=== PATIENT | female | born 2000 | race Caucasian/White ===

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

== ENCOUNTER 2022-08-03 11:14 | Emergency (ER) | payer OTHER ==
[2022-08-03] MEDS ORDERED: cefTRIAXone (ROCEPHIN) 500 MG VIAL ONE (12:05)
[2022-08-03] MEDS ORDERED: Lidocaine 1% PF 5 ML VIAL ONE (12:06)
[2022-08-03 12:38] LABS: Bilirubin Neg (Negative); Blood, Urine 250 (Negative); Clarity Slightly Cloudy (Clear); Glucose, Urine (Dipstick) Normal (Negative); Ketone, Urine Negative (Negative); Leukocyte 500 (Negative); Nitrite Negative (Negative); Protein, Urine (Dipstick) 30 mg/dl (Neg-Trace)
[2022-08-03 12:40] LABS: #Basophils 0.1 10x3/uL (0.0-0.2); #Eosinphils 0.7 10x3/uL (0.0-0.5); #Monocytes 0.6 10x3/uL (0.0-1.1); #Neutrophils 4.5 10x3/uL (1.5-8.4); %Basophils 0.8 % (0.0-2.0); %Eosinophils 8.6 % (0.0-6.0); %Lymphocytes 25.3 % (18.0-47.0); %Monocytes 7.7 % (0.0-10.0); %Neutrophils 57.2 % (40.0-75.0); Hemoglobin 12.2 g/dL (12.0-15.5); Mean Corpuscular HGB CONC 31.9 g/dL (32.0-36.0); Mean Corpuscular Hemoglobin 26.8 pg (27.0-33.0); Mean Platelet Volume 9.9 fl (7.4-10.4); Platelet Count 274 10x3/uL (150-450); RBC Distribution Width 13.6 % (11.5-14.5); Red Blood Cell (RBC) Count 4.56 10x6/uL (3.90-5.03); White Blood Cell (WBC) Count 7.8 10x3/uL (3.5-10.5)
[2022-08-03 12:45] LABS: BHCG - Serum Negative (NEGATIVE); Pregs Control Background? CLEAR/WHITE (CLR/WHITE); Pregs Control Bar Appear? YES (CONTROL BAR)
[2022-08-03 12:46] LABS: WBC/HPF Greater than 50 HPF (0-3)
[2022-08-03 12:47] LABS: Bacteria/HPF 2+ HPF (None Seen); Mucous/LPF 2+ LPF (<2+)
[2022-08-03 12:50] LABS: ALT (SGPT) 7 U/L (8-55); AST (SGOT) 15 U/L (5-34); Albumin 4.2 g/dL (3.5-5.0); Alkaline Phosphatase 76 U/L (40-100); Anion Gap 10 mmol/L (10-20); BUN (Urea Nitrogen) 11 mg/dL (7.0-18.7); Bilirubin, Total 0.4 mg/dL (0.2-1.2); Calc. Creatinine Clearance 0 mL/min (70-130); Calcium 9.3 mg/dL (7.8-10.44); Carbon Dioxide 26 mmol/L (22-29); Chloride 105 mmol/L (98-107); Estimated GFR 121; Globulin 2.8 g/dL (2.4-3.5); Glucose 89 mg/dL (70-105); Potassium 4.2 mmol/L (3.5-5.1); Sodium 137 mmol/L (136-145)
[2022-08-03 20:39] LABS: Chlam.trachomatis by PCR,Urine DETECTED (NotDetected); GC N.gonorrhoeae PCR,UrineVOID DETECTED (NotDetected)
== END 2022-08-03 14:02 | disposition home or self-care (01) ==
LOC: CSHERS 11:14
DX: N76.0 Acute vaginitis (principal); N39.0 Urinary tract infection, site not specified
CPT/HCPCS: 36415; 74176; 80053; 81003; 81015; 84703; 85025; 87491; 87591; 87661; 96372; J0696

== ENCOUNTER 2022-09-04 13:21 | Emergency (ER) | payer OTHER ==
[2022-09-04 14:55] LABS: Bilirubin Neg (Negative); Blood, Urine 25 (Negative); Clarity Slightly Cloudy (Clear); Glucose, Urine (Dipstick) Normal (Negative); Ketone, Urine Negative (Negative); Leukocyte 25 (Negative); Nitrite Negative (Negative); Protein, Urine (Dipstick) 30 mg/dl (Neg-Trace)
[2022-09-04 15:01] LABS: Hemoglobin 11.9 g/dL (12.0-15.5); Mean Corpuscular HGB CONC 32.2 g/dL (32.0-36.0); Mean Corpuscular Hemoglobin 26.8 pg (27.0-33.0); Mean Corpuscular Volume 83.1 fl (81.6-98.3); Platelet Count 255 10x3/uL (150-450); Red Blood Cell (RBC) Count 4.44 10x6/uL (3.90-5.03); White Blood Cell (WBC) Count 6.5 10x3/uL (3.5-10.5)
[2022-09-04 15:07] LABS: ALT (SGPT) 10 U/L (8-55); AST (SGOT) 20 U/L (5-34); Albumin 4.3 g/dL (3.5-5.0); Alkaline Phosphatase 66 U/L (40-100); Anion Gap 12 mmol/L (10-20); BUN (Urea Nitrogen) 10 mg/dL (7.0-18.7); Bilirubin, Total 0.3 mg/dL (0.2-1.2); Calc. Creatinine Clearance 0 mL/min (70-130); Calcium 9.4 mg/dL (7.8-10.44); Carbon Dioxide 23 mmol/L (22-29); Chloride 106 mmol/L (98-107); Estimated GFR 127; Globulin 2.8 g/dL (2.4-3.5); Glucose 86 mg/dL (70-105); Lipase 21 U/L (8-78); Potassium 4.1 mmol/L (3.5-5.1); Protein, Total 7.1 g/dL (6.0-8.3); Sodium 137 mmol/L (136-145)
[2022-09-04 15:18] LABS: Bacteria/HPF 2+ HPF (None Seen)
[2022-09-04 15:19] LABS: Mucous/LPF 4+ LPF (<2+)
[2022-09-04 15:20] LABS: Calcium Oxalate Crystals Rare HPF (None Seen)
[2022-09-04 15:36] LABS: MDiff Complete? YES
[2022-09-04 15:41] LABS: Band 6 % (5-11); Eosinophils 4 % (0-10); Lymphocytes 22 % (28-48); Monocytes 13 % (0-4); Neutrophil 49 % (31-61); Reactive Lymphocytes 3 % (0-10)
[2022-09-04 15:43] LABS: Anisocytosis SLIGHT = 6-15 cells (100X) (0-5/hpf); Microcytosis SLIGHT = 6-15 cells (100X) (0-5/hpf); Platelet Morphology Comment Appears Adequate
== END 2022-09-04 17:10 | disposition home or self-care (01) ==
LOC: CSHERS 13:21
DX: O20.8 Other hemorrhage in early pregnancy (principal); O23.10 Infections of bladder in pregnancy, unspecified trimester; F17.290 Nicotine dependence, other tobacco product, uncomplicated; Z3A.00 Weeks of gestation of pregnancy not specified
CPT/HCPCS: 36415; 76856; 80053; 81003; 81015; 83690; 84702; 85025; 87086

== ENCOUNTER 2024-04-06 22:52 | Emergency (ER) | payer OTHER ==
[2024-04-07] MEDS ORDERED: Ibuprofen 200 MG TAB ONE (01:00)
== END 2024-04-07 00:17 | disposition home or self-care (01) ==
LOC: CSHERS 22:52
DX: S90.32XA Contusion of left foot, initial encounter (principal); F17.290 Nicotine dependence, other tobacco product, uncomplicated; Z55.0 Illiteracy and low-level literacy; W23.0XXA Caught, crushed, jammed, or pinched between moving objects, initial encounter; Y93.89 Activity, other specified
CPT/HCPCS: 99283